=== PATIENT | male | born 1960 | race Two or more races ===

== ENCOUNTER 2018-04-11 15:27 | Emergency (ER) | payer OTHER ==
[~2018-04-11] VITALS: Ht 177.8 cm; Wt 99.8 kg
[2018-04-11] MEDS ORDERED: LISINOPRIL2.5 MG (15:32)
== END 2018-04-11 17:25 | disposition home or self-care (01) ==
LOC: ER 15:27
DX: L27.2 Dermatitis due to ingested food (principal); T78.1XXA Other adverse food reactions, not elsewhere classified, initial encounter